=== PATIENT | female | born 1955 | race African-American/Black ===

== ENCOUNTER 2019-01-09 14:17 | Inpatient (IN) | payer OTHER ==
[2019-01-09 16:34] LABS: ANION GAP 8 (5-13); BLOOD UREA NITROGEN 11 mg/dl (7-20); CALCIUM 7.4 mg/dl (8.4-10.2); CARBON DIOXIDE 21 mmol/L (21-31); CHLORIDE 114 mmol/L (97-110); CREATININE 0.74 mg/dl (0.44-1.00); Estimated GFR > 60 mL/min (>60); GLUCOSE 84 mg/dl (70-220); POTASSIUM 3.9 mmol/L (3.5-5.1); SODIUM 143 mmol/L (135-144)
[2019-01-09 16:45] LABS: TROPONIN-I < 0.012 ng/ml (0.000-0.120)
[2019-01-09 16:57] LABS: WHITE BLOOD COUNT 11.7 10^3/ul (4.8-10.8)
[2019-01-09 16:57] LABS: HEMATOCRIT 36.1 % (37.0-47.0); HEMOGLOBIN 11.5 g/dl (12.0-16.0); MEAN CORPUSCULAR HEMOGLOBIN 27.5 pg (29.0-33.0); MEAN CORPUSCULAR HGB CONC 31.9 g/dl (32.0-37.0); MEAN CORPUSCULAR VOLUME 86.4 fl (82.0-101.0); MEAN PLATELET VOLUME 11.1 fl (7.4-10.4); PLATELET COUNT 248 10^3/UL (140-415); RED BLOOD COUNT 4.18 10^6/ul (4.20-5.40); RED CELL DISTRIBUTION WIDTH 17.7 % (11.5-14.5)
[2019-01-09 16:59] LABS: ADD MAN DIFF? YES; POSITIVE DIFF @See below
[2019-01-09 18:25] LABS: BAND NEUTROPHILS #M 0.1 10^3/ul (0.0-0.6); BAND NEUTROPHILS % (M) 1 % (0-4); EOSINOPHILS % (M) 1 % (0-7); GIANT THROMBO% (M) 4 % (0-0); LYMPHOCYTES #M 5.3 10^3/ul (0.8-2.9); LYMPHOCYTES % (M) 46 % (15-51); MONOCYTE #M 0.3 10^3/ul (0.3-0.9); MONOCYTES % (M) 3 % (0-11); PLATELET ESTIMATE NORMAL; POLYCHROMASIA 1+ (0-0); REACTIVE LYMPHOCYTES #M 0.1 10^3/ul (0.0-0.0); REACTIVE LYMPHOCYTES% (M) 1 % (0-0); SEG NEUT #M 5.6 10^3/ul (1.6-7.5); SEGMENTED NEUTROPHILS (M) % 48 % (39-77); SMUDGE%M 16 % (0-0); TARGET CELLS 1+ (0-0)
[2019-01-09] MEDS: ONDANSETRON (ODT) 4 MG TAB ODT (20:50)
[2019-01-09] MEDS: HYDROCODONE/APAP (5/325) TAB PO (20:50)
[2019-01-09] MEDS ORDERED: hydrOXYzine HCL 50 MG TAB PO (22:00)
[2019-01-09] MEDS ORDERED: PROCHLORPERAZINE 10 MG TAB PO (22:00)
[2019-01-09] MEDS ORDERED: ZOLPIDEM 5 MG TAB PO (22:00)
[2019-01-09] MEDS: METHYLPREDNISOLONE 125 MG INJ IV (22:39)
[2019-01-09] MEDS: morphine 2 MG INJ IV (22:39)
[2019-01-09] MEDS: ATORVASTATIN 80 MG TAB PO (22:41)
[2019-01-09] MEDS: GABAPENTIN 300 MG CAP PO (22:41)
[2019-01-09] MEDS: DIVALPROEX (EC) 500 MG TAB PO (22:41)
[2019-01-09] MEDS: ALBUTEROL HFA 8 GM INHALER INH (23:30)
[2019-01-10] MEDS: traZODone 100 MG TAB PO ×2 (00:18→20:38)
[2019-01-10] MEDS: ALBUTEROL HFA 8 GM INHALER INH ×6 (02:03→21:00)
[2019-01-10] MEDS: ALPRAZOLAM 1 MG TAB PO ×2 (02:18→20:38)
[2019-01-10] MEDS: morphine 2 MG INJ IV ×3 (04:43→23:30)
[2019-01-10 05:48] LABS: ADD MAN DIFF? NO
[2019-01-10 05:50] LABS: BASOPHILS % 0.4 % (0.0-2.0); EOSINOPHILS % 0.1 % (0.0-7.0); HEMATOCRIT 39.4 % (37.0-47.0); LYMPHOCYTES # 1.2 10^3/ul (0.8-2.9); LYMPHOCYTES % 14.5 % (15.0-51.0); MEAN CORPUSCULAR HGB CONC 30.5 g/dl (32.0-37.0); MEAN CORPUSCULAR VOLUME 88.7 fl (82.0-101.0); MEAN PLATELET VOLUME 11.3 fl (7.4-10.4); MONOCYTE # 0.1 10^3/ul (0.3-0.9); MONOCYTES % 1.2 % (0.0-11.0); NEUTROPHILS % 82.6 % (39.0-77.0); PLATELET COUNT 264 10^3/UL (140-415); RED BLOOD COUNT 4.44 10^6/ul (4.20-5.40); RED CELL DISTRIBUTION WIDTH 18.2 % (11.5-14.5)
[2019-01-10 05:50] LABS: WHITE BLOOD COUNT 8.4 10^3/ul (4.8-10.8)
[2019-01-10 06:25] LABS: ANION GAP 6 (5-13); BLOOD UREA NITROGEN 13 mg/dl (7-20); CALCIUM 9.5 mg/dl (8.4-10.2); CARBON DIOXIDE 29 mmol/L (21-31); CHLORIDE 108 mmol/L (97-110); CREATININE 1.02 mg/dl (0.44-1.00); Estimated GFR > 60 mL/min (>60); GLUCOSE 168 mg/dl (70-220); POTASSIUM 4.7 mmol/L (3.5-5.1); SODIUM 143 mmol/L (135-144)
[2019-01-10] MEDS: PANTOPRAZOLE (EC) 40 MG TAB PO ×2 (06:43→07:56)
[2019-01-10] MEDS: METHYLPREDNISOLONE 125 MG INJ IV (06:44)
[2019-01-10] MEDS ORDERED: LEVOTHYROXINE 25 MCG TAB PO (07:00)
[2019-01-10] MEDS ORDERED: PANTOPRAZOLE (EC) 40 MG TAB PO (07:00)
[2019-01-10] MEDS: ACCU-CHEK XX ×4 (07:00→20:49)
[2019-01-10] MEDS: metFORMIN 500 MG TAB PO (07:56)
[2019-01-10] MEDS: SERTRALINE 50 MG TAB PO (08:22)
[2019-01-10] MEDS: DIVALPROEX (EC) 500 MG TAB PO ×2 (08:23→20:38)
[2019-01-10] MEDS: AMLODIPINE 10 MG TAB PO (08:24)
[2019-01-10] MEDS: DONEPEZIL 10 MG TAB PO (08:24)
[2019-01-10] MEDS: GABAPENTIN 300 MG CAP PO ×3 (08:24→20:37)
[2019-01-10] MEDS: CYCLOBENZAPRINE 10 MG TAB PO (08:25)
[2019-01-10] MEDS: LOSARTAN 50 MG TAB PO (08:25)
[2019-01-10] MEDS: CLOPIDOGREL 75 MG TAB PO (08:25)
[2019-01-10] MEDS: DOCUSATE SODIUM 100 MG CAP PO ×2 (08:26→20:37)
[2019-01-10] MEDS: NICOTINE (21 MG/24 HR) PATCH TRANSDERM (08:27)
[2019-01-10] MEDS: HYDROCODONE/APAP (5/325) TAB PO (10:44)
[2019-01-10 12:41] LABS: ERYTHROCYTE SEDIMENTATION RATE 12 mm/Hr (0-30)
[2019-01-10] MEDS: METHYLPRED. NA SUCC 1,000 MG in DEXTROSE 5% 100 ML IVPB (12:52)
[2019-01-10] MEDS ORDERED: hydrOXYzine HCL 25 MG TAB PO (17:30)
[2019-01-10] MEDS: ATORVASTATIN 80 MG TAB PO (20:38)
[2019-01-10] MEDS ORDERED: traZODone 100 MG TAB PO (21:00)
[2019-01-11] MEDS: ALBUTEROL HFA 8 GM INHALER INH ×6 (00:40→23:25)
[2019-01-11] MEDS ORDERED: CEFAZOLIN 1 GM INJ (07:00)
[2019-01-11] MEDS: PANTOPRAZOLE (EC) 40 MG TAB PO (07:00)
[2019-01-11] MEDS ORDERED: SEVOFLURANE 15 MIN (07:00)
[2019-01-11] MEDS: ACCU-CHEK XX ×4 (07:00→23:27)
[2019-01-11] MEDS ORDERED: PROPOFOL 200 MG INJ (07:00)
[2019-01-11] MEDS ORDERED: METOCLOPRAMIDE 10 MG INJ (07:00)
[2019-01-11] MEDS ORDERED: LIDOCAINE 2% (SDV) 5 ML INJ (07:00)
[2019-01-11] MEDS: metFORMIN 500 MG TAB PO (08:23)
[2019-01-11] MEDS: SERTRALINE 50 MG TAB PO (08:23)
[2019-01-11] MEDS: DIVALPROEX (EC) 500 MG TAB PO ×2 (08:25→23:24)
[2019-01-11] MEDS: GABAPENTIN 300 MG CAP PO ×3 (08:25→23:24)
[2019-01-11] MEDS: AMLODIPINE 10 MG TAB PO (08:25)
[2019-01-11] MEDS: DONEPEZIL 10 MG TAB PO (08:26)
[2019-01-11] MEDS: CYCLOBENZAPRINE 10 MG TAB PO (08:26)
[2019-01-11] MEDS: NICOTINE (21 MG/24 HR) PATCH TRANSDERM (08:27)
[2019-01-11] MEDS: DOCUSATE SODIUM 100 MG CAP PO ×2 (08:27→23:24)
[2019-01-11] MEDS: CLOPIDOGREL 75 MG TAB PO (08:27)
[2019-01-11] MEDS: LOSARTAN 50 MG TAB PO (08:31)
[2019-01-11] MEDS: METHYLPRED. NA SUCC 1,000 MG in DEXTROSE 5% 100 ML IVPB (08:41)
[2019-01-11] MEDS: morphine 2 MG INJ IV (09:14)
[2019-01-11 14:44] LABS: THYROID STIMULATING HORMONE 0.292 MIU/L (0.465-4.680)
[2019-01-11] MEDS ORDERED: FENTAnyl 50 MCG/ML VIAL (19:58)
[2019-01-11] MEDS ORDERED: ONDANSETRON 4 MG INJ (19:59)
[2019-01-11] MEDS ORDERED: MIDAZOLAM 1 MG/ML 2 ML INJ (19:59)
[2019-01-11] MEDS ORDERED: DIPHENHYDRAMINE 50 MG INJ IV (20:00)
[2019-01-11] MEDS ORDERED: MIDAZOLAM 1 MG/ML 2 ML INJ IV (20:00)
[2019-01-11] MEDS ORDERED: HALOPERIDOL 5 MG INJ IV (20:00)
[2019-01-11] MEDS ORDERED: IPRATROPIUM (NEB) 0.5 MG/2.5 ML AMP HHN (20:00)
[2019-01-11] MEDS ORDERED: HYDROmorphONE 1 MG/5 ML IV SYRINGE IV ×2 (20:00)
[2019-01-11] MEDS ORDERED: MEPERIDINE 25 MG INJ IV (20:00)
[2019-01-11] MEDS ORDERED: LABETALOL HCL 20MG INJ IV (20:00)
[2019-01-11] MEDS ORDERED: hydrALAzine 20 MG INJ IV (20:00)
[2019-01-11] MEDS ORDERED: LEVALBUTEROL (NEB) 1.25 MG/0.5 ML AMP HHN (20:00)
[2019-01-11] MEDS ORDERED: FENTAnyl 50 MCG/ML VIAL IV (20:00)
[2019-01-11] MEDS ORDERED: ONDANSETRON 4 MG INJ IV (20:00)
[2019-01-11] MEDS ORDERED: LORAZEPAM 2 MG INJ IV (20:00)
[2019-01-11] MEDS: LIDOCAINE 1%/EPI (1:100,000) (MDV) 20 ML (21:41)
[2019-01-11] MEDS ORDERED: RACEPINEPHRINE 2.25%(NEB) 0.5 ML AMP (22:16)
[2019-01-11] MEDS: traZODone 100 MG TAB PO (23:24)
[2019-01-11] MEDS: ATORVASTATIN 80 MG TAB PO (23:24)
[2019-01-11] MEDS: ALPRAZOLAM 1 MG TAB PO (23:30)
[2019-01-12] MEDS: ALBUTEROL HFA 8 GM INHALER INH ×4 (01:00→13:00)
[2019-01-12] MEDS: ACCU-CHEK XX ×2 (07:00→12:27)
[2019-01-12] MEDS: NICOTINE (21 MG/24 HR) PATCH TRANSDERM (08:12)
[2019-01-12] MEDS: DOCUSATE SODIUM 100 MG CAP PO (08:12)
[2019-01-12] MEDS: metFORMIN 500 MG TAB PO (08:13)
[2019-01-12] MEDS: CYCLOBENZAPRINE 10 MG TAB PO (08:13)
[2019-01-12] MEDS: GABAPENTIN 300 MG CAP PO ×2 (08:13→13:13)
[2019-01-12] MEDS: DONEPEZIL 10 MG TAB PO (08:13)
[2019-01-12] MEDS: LOSARTAN 50 MG TAB PO (08:13)
[2019-01-12] MEDS: AMLODIPINE 10 MG TAB PO (08:13)
[2019-01-12] MEDS: PANTOPRAZOLE (EC) 40 MG TAB PO (08:14)
[2019-01-12] MEDS: SERTRALINE 50 MG TAB PO (08:14)
[2019-01-12] MEDS: DIVALPROEX (EC) 500 MG TAB PO (08:14)
[2019-01-12] MEDS: CLOPIDOGREL 75 MG TAB PO (08:14)
[2019-01-12] MEDS: morphine 2 MG INJ IV (08:15)
[2019-01-12] MEDS: METHYLPRED. NA SUCC 1,000 MG in DEXTROSE 5% 100 ML IVPB (09:56)
[2019-01-12] MEDS: HYDROCODONE/APAP (5/325) TAB PO (13:09)
== END 2019-01-12 15:50 | disposition home or self-care (01) | DRG 517 ==
LOC: 6WM 21:18 → E/R 14:17 → 6WM 18:48
PROVIDERS: Internal Medicine
PROC: 03BT0ZX Excision of Left Temporal Artery, Open Approach, Diagnostic (ICD-10-PCS; principal; 2019-01-11 19:00)
PROC: 03BS0ZX Excision of Right Temporal Artery, Open Approach, Diagnostic (ICD-10-PCS; 2019-01-11 19:00)
DX: M31.6 Other giant cell arteritis (principal); Z72.0 Tobacco use; I10 Essential (primary) hypertension; E78.5 Hyperlipidemia, unspecified; E11.40 Type 2 diabetes mellitus with diabetic neuropathy, unspecified; H54.61 Unqualified visual loss, right eye, normal vision left eye; E03.9 Hypothyroidism, unspecified; F01.50 Vascular dementia, unspecified severity, without behavioral disturbance, psychotic disturbance, mood disturbance, and anxiety; F32.9 Major depressive disorder, single episode, unspecified; E66.01 Morbid (severe) obesity due to excess calories; Z68.39 Body mass index [BMI] 39.0-39.9, adult
CPT/HCPCS: 36415; 70450; 73562-50; 73600-50; 80048; 82962; 84443; 84484; 85025; 85651; 88305; 88313; 92610; 93005; 93306; 93880; 97116; 97162; 97530; 99285-25; G0378